=== PATIENT | male | born 1955 | race Caucasian/White ===

== ENCOUNTER 2018-02-18 16:01 | Emergency (ER) | payer BC ==
[~2018-02-18] VITALS: Ht 193 cm; Wt 99.8 kg
[~2018-02-18 16:01] MED LIST: ARIXTRA; ASACOL PO; ASPIRIN325; CELEBREX 200 M200 MG PO; FLOMAX PO; FOLIC ACID PO; NEURONTIN 300300 M1 PO; NORCO 10-325 T1 EACH PO; ULTRAM 50MG TAB50 MG PO
[2018-02-18] MEDS ORDERED: UNICOMPLEX M TA1 TA1 PO (16:15)
[2018-02-18] MEDS ORDERED: NAPROSYN500 MG PO (16:30)
[2018-02-18] MEDS ORDERED: KEFLEX500 M1 PO (16:30)
[2018-02-18 16:36] VITALS: BP 157/81
== END 2018-02-18 16:36 | disposition home or self-care (01) ==
LOC: M.ERS 16:01
DX: L03.012 Cellulitis of left finger (principal); K51.90 Ulcerative colitis, unspecified, without complications; Z96.651 Presence of right artificial knee joint; Z88.5 Allergy status to narcotic agent

== ENCOUNTER → 2019-04-02 | Outpatient (CLI) | payer BC ==
[~2019-04-02] MED LIST changes: +KEFLEX500 M1 PO; +NAPROSYN500 MG PO; +UNICOMPLEX M TA1 TA1 PO
[2019-04-02 17:48] LABS: HEMOGLOBIN 12.7 gm/dL (14.0-18.0); MCH 30.6 pg (26.0-34.0); MCHC 33.5 g/dL (28.0-37.0); MCV 91.2 fL (80.0-100.0); MPV 9.5 fl. (7.2-11.1); RBC 4.17 mil/uL (4.50-6.00); RDW-CV 13.3 % (10.5-14.5); WBC 4.7 thou/uL (4.0-11.0)
[2019-04-02 18:01] LABS: ALBUMIN 4.1 g/dL (3.4-5.0); CREATININE 0.9 mg/dL (0.6-1.3); POTASSIUM 4.1 mmol/L (3.5-5.1); TOTAL BILIRUBIN 0.5 mg/dL (<0.1-1.0); TOTAL PROTEIN 6.9 g/dL (6.4-8.2)
== END ==
LOC: M.LAB 17:28
PROVIDERS: Anesthesiology
DX: Z01.818 Encounter for other preprocedural examination (principal)